=== PATIENT | male | born 1965 | race Asian ===

== ENCOUNTER 2017-10-28 12:29 | Day surgery (SDC) | payer OTHER ==
[~2017-10-28] VITALS: Ht 172.7 cm; Wt 86.2 kg
[~2017-10-28 12:29] MED LIST: CEFAZOLIN SOD 1 GM/ ISO 50 ML PREMIX IV ONE
[2017-10-28] MEDS ORDERED: IOHEXOL 50 ML IV ONE (16:29)
[2017-10-28] MEDS ORDERED: D5/0.45 NS 1,000 ML IV SCH (17:25)
[2017-10-28] MEDS ORDERED: HYDROmorphone 1 MG INJ. 1 MG/ML AMPUL IVP PRN ×2 (17:30→18:00)
[2017-10-28] MEDS ORDERED: SEVOFLURANE 15 MIN GAS INH ONE (17:40)
[2017-10-28] MEDS ORDERED: ROCURONIUM BROMIDE 10 MG/ML (ZEMURON) ONE (17:40)
[2017-10-28] MEDS ORDERED: DEXAMETHASONE SOD PHOSPHATE 4 MG/ML VIAL ONE (17:40)
[2017-10-28] MEDS ORDERED: fentaNYL CITRATE 250 MCG/5 ML AMP ONE (17:40)
[2017-10-28] MEDS ORDERED: KETOROLAC TROMETHAMINE 30 MG VIAL ONE (17:40)
[2017-10-28] MEDS ORDERED: ONDANSETRON HCL 4 MG/2 ML VIAL ONE (17:40)
[2017-10-28] MEDS ORDERED: CEFAZOLIN 2 GM IVPB PREMIX 50 ML IV ONE (17:40)
[2017-10-28] MEDS ORDERED: LR 1,000 ML IV.SOLN IV ONE (17:40)
[2017-10-28] MEDS ORDERED: PROPOFOL 200MG/ 20ML VIAL (DIPRIVAN) IV ONE (17:40)
[2017-10-28] MEDS ORDERED: NS IRRIG SOLN 1000 ML IR ONE (17:40)
[2017-10-28] MEDS ORDERED: BUPIVACAINE /PF 0.25% 30 ML VIAL INJ ONE (17:40)
[2017-10-28] MEDS ORDERED: MIDAZOLAM HCL 5 MG/ML VIAL (VERSED) IV ONE (17:40)
[2017-10-28] MEDS ORDERED: HYDROmorphone 1 MG INJ. 1 MG/ML AMPUL ONE (17:56)
[2017-10-28] MEDS ORDERED: MORPHINE 4 MG/ML INJ. SYRINGE IVP PRN ×2 (18:00)
[2017-10-28] MEDS ORDERED: MEPERIDINE HCL/PF 25 MG/ML DISP.SYRIN IVP PRN (18:00)
[2017-10-28] MEDS ORDERED: HYDROmorphone 2 MG/ML VIAL IVP PRN ×2 (18:00)
[2017-10-28] MEDS ORDERED: MORPHINE SULFATE 10 MG/ML VIAL IVP PRN (18:00)
[2017-10-28] MEDS ORDERED: LR 1,000 ML IV SCH (18:15)
[2017-10-28 19:04] VITALS: BP_SYST 140
[2017-10-28] MEDS ORDERED: HYDROcodone/ACETAMIN 5-325 MG TAB (NORCO/ VICODIN) PO PRN ×2 (21:00)
== END 2017-10-28 19:55 | disposition home or self-care (01) ==
LOC: SDS 12:29
PROVIDERS: ATTEND Colon & Rectal Surgery
DX: K80.10 Calculus of gallbladder with chronic cholecystitis without obstruction (principal); I10 Essential (primary) hypertension; E78.5 Hyperlipidemia, unspecified; J45.909 Unspecified asthma, uncomplicated; J20.9 Acute bronchitis, unspecified; F41.9 Anxiety disorder, unspecified; N40.0 Benign prostatic hyperplasia without lower urinary tract symptoms; K21.9 Gastro-esophageal reflux disease without esophagitis; F17.200 Nicotine dependence, unspecified, uncomplicated; Z82.49 Family history of ischemic heart disease and other diseases of the circulatory system; Z80.3 Family history of malignant neoplasm of breast; M54.16 Radiculopathy, lumbar region; E78.1 Pure hyperglyceridemia; Z79.899 Other long term (current) drug therapy
CPT/HCPCS: 47563; 74300; 88304; C1727; C1758; J0690 ×2; J1100; J1170; J1885; J2250; J2405; J2704; J3010; J3490; J7120; Q9967; 76000